=== PATIENT | female | born 1990 | race Caucasian/White ===

== ENCOUNTER 2020-02-18 23:06 | Emergency (ER) | payer OTHER ==
[~2020-02-18] VITALS: Ht 157.5 cm; Wt 80.0 kg
[2020-02-18 23:17] VITALS: Ht 157.5 cm; Wt 80.0 kg
[2020-02-19 00:21] LABS: UA SPECIFIC GRAVITY 1.025 (1.005-1.035); microscopic required? YES; urine erythrocyte 2+ (NEGATIVE)
[2020-02-19 00:55] VITALS: BP 117/65
== END 2020-02-19 00:55 | disposition home or self-care (01) ==
LOC: ED 23:06
PROVIDERS: Emergency Medicine
DX: N39.0 Urinary tract infection, site not specified (principal)